=== PATIENT | female | born 1990 | race Caucasian/White ===

== ENCOUNTER 2018-04-05 23:00 | Inpatient (IN) ==
[2018-04-05] MEDS ORDERED: D5% in Lactated Ringers 1,000 ML IVC SCH (23:45)
[2018-04-05] MEDS ORDERED: Ringers Solution, Lactated 1,000 ML IVC SCH (23:45)
[2018-04-05] MEDS ORDERED: *HR* Nalbuphine 10 MG/ML AMPUL IVP PRN (23:45)
[2018-04-05] MEDS ORDERED: Naloxone 0.4 MG/ML INJ IVP PRN (23:45)
[2018-04-05] MEDS ORDERED: Metoclopramide 10 MG/2 ML VIAL IVP PRN (23:45)
[2018-04-05] MEDS ORDERED: Famotidine 20 MG/2 ML VIAL IVP PRN (23:45)
[2018-04-05] MEDS ORDERED: miSOPROStol 25 MCG TABLET PO PRN (23:45)
[2018-04-05] MEDS ORDERED: Ondansetron 4 MG/2 ML VIAL IVP PRN (23:45)
--- NOTE | 2018-04-05 23:58 | OB/GYN History & Physical ---
Date of Encounter: 04/05/18 Time of Encounter: 23:52 Assessment and Plan (1) 39 weeks gestation of Current visit: Yes Status: Acute Admit for IOL Cytotec PO GBS negative CBC Blood sugar Routine labor management patient may have epidural and/or nubain upon request Anticipate vaginal delivery POC per consult with Dr Mcneill. (2) GDM, class A2 Current visit: Yes Status: Acute History of Present Illness Chief complaint: IOL for GDM HPI: Ms. Skinner is a 27 year old at 39 weeks and 1 days that presents to labor and delivery for scheduled IOL due to GDM with insulin use at HS. She did have a low lying placenta which resolved at 28 weeks per ultrasound. She states positive movement. She denies headache, LOF, VB, epigastric pain, cramping, and visual disturbances. She has seen Dr Mcneill for her care. Labs: Blood type A+ HIV NR Hep B NR RPR NR Rubella - immune Varicella - Nonimmune GBS - Neg Obstetrical History - Pregnancies : 2 Para: 1 Term: 1 : 0 Ab's: 0 Livin Review of System OB All systems PM: reviewed and no additional remarkable complaints except as stated Exam - Constitutional Constitutional: well developed, well nourished, no acute distress, average body habitus - HEENT HEENT: Normocephaly, Mucus Membranes Moist - Neck Neck exam: full ROM - Lungs Respiratory exam: CTAB - Cardiovascular Cardiovascular exam: RRR, +S1, +S2 - Abdomen Abdomen: Present: bowel sounds normal, gravid, non tender - Extremities Extremities exam: normal capillary refill, normal inspection, radial pulses palpable and symmetrical Deep Tendon Reflex Grade: 2+ Normal Results All other labs normal. - VTE Reasons for not Prescribing Prophylaxis: Treatment not Indicated - Low risk for VTE
[2018-04-06 00:47] LABS: Basophils % 0.2 %; Eosinophils # 0.1 K/mcL (0.0-0.6); Eosinophils % 1.5 %; Hematocrit 38.1 % (35.3-44.9); Hemoglobin 13.4 g/dL (11.5-15.4); Immature Granulocytes % 0.5 % (0-4); Lymphocytes % 35.9 %; Mean Corpuscular HGB Conc 35.2 g/dL (31.6-35.5); Mean Corpuscular Hemoglobin 29.6 pg (28.0-33.3); Mean Corpuscular Volume 84.3 fL (83.0-100.0); Mean Platelet Volume 11.3 fL (9.4-12.4); Monocytes # 0.5 K/mcL (0.0-1.3); Monocytes % 6.3 %; Neutrophils # 4.7 K/mcL (1.6-8.9); Platelet Count 185 K/mcL (140-400); Red Blood Count 4.52 M/mcL (3.82-4.97); Segmented Neutrophils % 55.6 %
[2018-04-06 00:56] LABS: Amphetamine Screen,Urine Negative ng/mL (Cutoff=1000); Barbiturate Screen,Urine Negative ng/mL (Cutoff=200); Benzodiazepines Screen,Urine Negative ng/mL (Cutoff=200); Cannabinoid Screen,Urine Negative ng/mL (Cutoff = 50); Cocaine Screen,Urine Negative ng/mL (Cutoff= 300); Opiate Screen,Urine Negative ng/mL (Cutoff=300); Phencyclidine Screen,Urine Negative ng/mL (Cutoff=25)
[2018-04-06] MEDS ORDERED: Oxytocin 20 units/ LR 1000 mL 20 UNIT/1,000 ML BAG IVC SCH ×2 (06:30→20:15)
[2018-04-06] MEDS ORDERED: Bupivacaine-MPF 0.25% 10 ML VIAL EP ONE (12:04)
[2018-04-06] MEDS ORDERED: *HR* FentaNYL (PF) 100 MCG/2 ML VIAL EP ONE (12:04)
[2018-04-06] MEDS ORDERED: Lidocaine/EPI 1:200k 2% PF 20 ML VIAL ONE (12:07)
[2018-04-06] MEDS ORDERED: Lidocaine -MPF 1% 5 ML AMPUL ONE (12:07)
[2018-04-06] MEDS ORDERED: *HR* FentaNYL (PF) 100 MCG/2 ML VIAL ONE (12:07)
[2018-04-06] MEDS ORDERED: Bupivacaine-MPF 0.25% 10 ML VIAL ONE (12:07)
[2018-04-06] MEDS ORDERED: Epidural Premix (fent/bupiv) 110 ML EP SCH (12:15)
--- NOTE | 2018-04-06 12:50 | Anesthesia Evaluation PreOp ---
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73 m Height 1.73 m Weight 128 kg Weight 128 kg NPO (# of Hours): solids > 8hrs Pain Scale: 6 Pain Scale Used: Numeric (1 - 10) - HEENT Pupil (Motor): Pupils equal Mallampati: II Teeth: Normal Oral Opening: Greater than 3 - 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
--- NOTE | 2018-04-06 12:52 | Anesthesia Procedures ---
Date of Encounter: 04/06/18 Time of Encounter: 12:50 Procedures: Anesthesia - Epidural/Spinal Patient ID/Chart reviewed: Yes Patient examined: Yes OB Eval: Gestational age: 39 weeks 2 days OB Eval: : 2 OB Eval: Hx Para: 1 OB Eval: Dilated at (cm): 3 OB Eval: Contractions: Non-stressed pattern Consent Obtained: Yes Supplemental Oxygen: None/Room Air Site Prep: Aseptic Technique, Sterile prep and drape, Povidone-Iodine 1% Patient position: upright Local Anesthetic: Lidocaine 1% Amount of Local Anesthetic used: 3 Touhy Needle Gauge: 18 Touhy Needle Depth (cm): 6 Catheter Depth at Skin (cm): 11 Test Dose (1.5% Lido + Epi): Volume given (mls): 5 Test Dose Result: Negative Loading Dose: 0.25% Marcaine (mls): 5 Loading Dose: Fentanyl (mcg): 100 Loading Dose Administered: Thru Catheter Infusion Med: 0.125% Bupivacaine w/ 2 mcg/ml Fentanyl Infusion Rate (mls/hr): 14 (w/ demand bolus of 5mL q30min PRN) Catheter Secured in Place: Tegaderm, Tape Interspace Used: L3-L4 Loss of Resistance (SALOME): Yes Blood: No CSF: No Paresthesia: No Procedure: successful on 2nd attempt; patient tolerated procedure well; VSS Vitals + FHT's: see Yane ANDERS's electronic records for VS entry
--- NOTE | 2018-04-06 14:14 | OB Labor Progress Note ---
Date of Encounter: 04/06/18 Time of Encounter: 14:11 Labor Progress Note - Subjective Subjective: Comfortable with epidural - Cervix Cervix: 4/80/-1 - Heart Tones Heart Tones: 145/moderate/+accel/late decels - [place]: 3-4 - Interventions Interventions: AROM for small amount of clear fluid - Plan Plan: Continue pitocin per policy frequent repositioning Anticipate
--- NOTE | 2018-04-06 17:42 | OB/GYN Procedure Note ---
Delivery - Delivery Date: 04/06/18 Provider: Ashley Mcneill Intrapartum events: none Delivery induction: AROM, oxytocin, misoprostol Delivery monitor: external FHT, external uterine Anesthesia: epidural Quantitated Blood Loss: 250 - (s) A Infant Delivery Date: 04/06/18 Infant Delivery Time: 17:17 Presentation: vertex Position: JAMES Route of delivery: Gender: Female Viability: Viable Pounds: 9 Ounces: 1 Weight Gram: 4.11 kg at 1 minute: 8 at 5 mins: 9 Shoulder Dystocia: not encountered Specimens collected: cord blood Placenta: spontaneous Cord: nuchal cord, 3 umbilical vessels, delivered through nuchal - Repair Episiotomy: none Laceration Description: Perineal - 2nd Degree - Complications Delivery complications: none Delivery comments: Called to room with patient complete and +2 station. Under maternal effort she delivered a viable female weighing 9 lbs. 1 oz. and Apgars 8 and 9 at one and 5 minutes respectively over a second-degree perineal laceration. Following delivery of the head a nuchal cord was noted that she delivered 3. No shoulder dystocia was encountered. was placed on mom's abdomen. Cord was allowed to cease pulsation and then was double clamped and cut. Placenta delivered spontaneously, complete, and intact with a three-vessel cord. Second-degree perineal laceration was repaired using 3-0 Vicryl in standard fashion. Mother and infant recovering in the LDR in stable condition. - Disposition Mom disposition: stable in LDR [place] disposition: stable in LDR
[2018-04-06] MEDS ORDERED: Oxytocin 20 units/ LR 1000 mL 20 UNIT/1,000 ML BAG IVC ONE (20:15)
[2018-04-06] MEDS ORDERED: Acetaminophen 325 MG TABLET PO PRN (20:15)
[2018-04-06] MEDS ORDERED: *HR* HYDROcodone/Acet 5/325 mg TABLET PO PRN (20:15)
[2018-04-07] MEDS: Ibuprofen 600 MG TABLET PO PRN ×2 (04:19→16:02)
[2018-04-07] MEDS ORDERED: Prenatal Vit/FA 1 EACH TABLET PO SCH (09:00)
--- NOTE | 2018-04-07 09:44 | Discharge Summary ---
Date of Encounter: 04/07/18 Time of Encounter: 09:42 - Discharge Diagnosis (1) Vaginal delivery Priority: Primary Status: Acute Comments: continue routine care discharge home today follow up with Dr. Mcneill in 4-6 weeks (2) Breast feeding status of mother Priority: Secondary Status: Acute Comments: support prn (3) GDM, class A2 Priority: Secondary Status: Acute Comments: 2 hour gtt in 6 weeks - Discharge Medications Prescriptions: Ibuprofen [Motrin] 600 mg PO Q6HR PRN #60 tablet PRN Reason: Cramping Home Medications: Ibuprofen [Motrin] 600 mg PO Q6HR PRN #60 tablet 04/07/18 [Rx] Allergies/Adverse Reactions: 3 Allergy/AdvReac Type Severity Reaction Status Date / Time No Known Allergies Allergy Verified 04/06/18 01:35 Data Procedures and tests throughout hospitalization: Laboratory Tests 04/06/18 04/06/18 04/06/18 00:25 00:25 00:25 WBC 8.4 RBC 4.52 Hgb 13.4 Hct 38.1 MCV 84.3 MCH 29.6 MCHC 35.2 RDW 14.0 Plt Count 185 MPV 11.3 Immature Gran % 0.5 Seg Neutrophils % 55.6 Lymphocytes % 35.9 Monocytes % 6.3 Eosinophils % 1.5 Basophils % 0.2 Neutrophils # 4.7 Lymphocytes # 3.0 Monocytes # 0.5 Eosinophils # 0.1 Basophils # 0.0 Glucose 95 POC Glucose Urine Opiates Screen Negative Ur Barbiturates Screen Negative Ur Phencyclidine Scrn Negative Ur Amphetamines Screen Negative U Benzodiazepines Scrn Negative Urine Cocaine Screen Negative U Marijuana (THC) Screen Negative Ur Drug Screen Interp See Below 04/06/18 11:47 WBC RBC Hgb Hct MCV MCH MCHC RDW Plt Count MPV Immature Gran % Seg Neutrophils % Lymphocytes % Monocytes % Eosinophils % Basophils % Neutrophils # Lymphocytes # Monocytes # Eosinophils # Basophils # Glucose POC Glucose 96 Urine Opiates Screen Ur Barbiturates Screen Ur Phencyclidine Scrn Ur Amphetamines Screen U Benzodiazepines Scrn Urine Cocaine Screen U Marijuana (THC) Screen Ur Drug Screen Interp Labs on day of discharge: Labs from last 24 hours 04/06/18 11:47 POC Glucose 96 Date of admission: 04/05/18 23:21 Primary care physician: PCP NONE Consults: 04/06/18 20:15 Consult to Chief Human Resources Officer [CONS] Routine Comment: Vaginal delivery, consult needed Discharging clinician: Kim Howard Anticipated date of discharge: 04/07/18 - Patient Status Disposition: Home, Self-Care Condition: Good Functional capacity at discharge: independent ambulation - Discharge Instructions Follow Up With: NONE,PCP [Primary Care Provider] - Ashley Mcneill DO [Partnered Physician] - - Diet and Activity Activity: increase activity as tolerated Diet: regular diet Hospital Course Reason for admission: induction of labor Delivery: Episiotomy: none Laceration: 2nd degree Other procedures: none complications: none Discharge diagnosis: IUP at term delivered baby: female (breast feeding) Time Attestation: Total time spent providing and/or coordinating discharge services: Time Spent: Less than 30 minutes Exam - Constitutional Vitals: Temp Pulse Resp BP Pulse Ox 97.8 F 89 14 119/77 97 04/07/18 04:20 04/07/18 04:20 04/07/18 04:20 04/07/18 04:20 04/07/18 04:20 General appearance IM: A&O X 3, pleasant, answers questions appropriately - Respiratory Respiratory exam: Present: CTAB - Cardiovascular Cardiovascular exam IM: Present: RRR, +S1, +S2 - GI/Abdominal GI/Abdominal exam IM: normal bowel sounds - Uterine Tone: Firm Uterus Position: 1 Finger Below Umbilicus, Midline - Extremities Exam Extremities exam IM: Present: full ROM, normal capillary refill, normal inspection - Neurological Exam Neurological exam: alert, oriented X3, reflexes normal
[2018-04-07 10:30] VITALS: BP 127/79
== END 2018-04-07 18:33 | disposition home or self-care (01) | DRG 775 ==
LOC: 1NENULAB 23:21 → 1NENUOBS 04-06 20:10
PROVIDERS: ADMIT Obstetrics & Gynecology; ATTEND Obstetrics & Gynecology